=== PATIENT | female | born 1980 | race Caucasian/White ===

== ENCOUNTER 2017-08-19 10:56 | Day surgery (SDC) | payer BC ==
[~2017-08-19] VITALS: Ht 162.6 cm; Wt 102.2 kg
[2017-08-19 11:55] LABS: HEMOGLOBIN 11.6 G/DL (11.9-15.5); MCH 28.8 PG (29.0-34.0); MCHC 32.2 G/DL (30.0-36.0); MCV 89.3 FL (83-99); PLATELET COUNT 397 K/uL (156-360); RBC DIS.WIDTH-CV 13.1 % (11.8-14.6); RED BLOOD COUNT 4.03 M/uL (3.80-5.20)
[2017-08-19 13:03] LABS: APPEARANCE SL.HAZY ((CLEAR)); BILIRUBIN NEGATIVE; BLOOD MODERATE; COLOR YELLOW ((YELLOW)); GLUCOSE (STRIP) NEGATIVE; KETONES NEGATIVE; LEUKOCYTES NEGATIVE; NITRITE NEGATIVE; PROTEIN (STRIP) NEGATIVE; UROBILINOGEN 0.2 MG/DL (0.2-1.0)
[2017-08-19 13:08] LABS: BACTERIA NONE SEEN /HPF; EPITHELIAL CELLS 1+ /HPF; MUCUS 2+ /LPF; UCUL ADDED? NO; WHITE BLOOD CELLS 0-5 /HPF (0-5)
[2017-08-19] MEDS ORDERED: NAPROXEN SODIU220 MG PO (15:49)
[2017-08-19 20:10] VITALS: BP 104/58
[2017-08-19 23:10] VITALS: BP 109/54
[2017-08-20 03:43] VITALS: BP 104/62
[2017-08-20 08:19] VITALS: BP 113/59
== END 2017-08-20 11:19 | disposition home or self-care (01) ==
LOC: EME 10:56 → ENRESERV 15:36 → EME 17:37 → SDC 17:37 → 2EAST 18:48 → ENRESERV 18:58 → 2EAST 08-20 11:19
PROVIDERS: Physician Assistant
DX: O00.101 Right tubal pregnancy without intrauterine pregnancy (principal); O08.1 Delayed or excessive hemorrhage following ectopic and molar pregnancy; K66.1 Hemoperitoneum; Z88.0 Allergy status to penicillin
CPT/HCPCS: 76801; 81003; 82948; 84702; 85027; 86850; 86900; 86901; 88305; G0378; J1170; J1885; J2250; J2405; J3010; J7030; J7120; S0020